=== PATIENT | male | born 1975 | race Caucasian/White ===

== ENCOUNTER → 2025-04-12 | Day surgery (SDC) | payer MEDICARE ==
[~2025-04-12] MED LIST: ASPIRIN81 MG PO; BENICAR40 MG PO; COQ-10100 MG; FENTANYL CITRATE/PF 100MCG/2 ML INJ ONE; LACTATED RINGER'S 1,000 ML ONE; LIDOCAINE HCL 2% LOCAL INJ 5 ML SDV VIAL INJ ONE; LIPITOR20 MG PO; METOPROLOL SUCC50 MG PO; PROPOFOL IV EMULSION 10 MG/ML 20 ML VIAL ONE; SEVOFLURANE INHAL SOLN 250 ML PEN BTL ONE
[2025-04-12 09:13] VITALS: TEMP 97.6
[2025-04-12 10:00] VITALS: BP 148/80; PULSE 60; RESP 16; O2SAT 98
== END | disposition home or self-care (01) ==
LOC: OR 05:56
PROVIDERS: ATTEND Otolaryngology Otolaryngology/Facial Plastic Surgery
DX: H91.23 Sudden idiopathic hearing loss, bilateral (principal); H93.19 Tinnitus, unspecified ear; I10 Essential (primary) hypertension; R00.1 Bradycardia, unspecified; I25.2 Old myocardial infarction; F17.220 Nicotine dependence, chewing tobacco, uncomplicated; F17.290 Nicotine dependence, other tobacco product, uncomplicated; Z79.899 Other long term (current) drug therapy; Z79.82 Long term (current) use of aspirin
CPT/HCPCS: 69399; 69436; 93005; J2003; J2704; J3010; J7121